=== PATIENT | male | born 1955 | race Caucasian/White ===

== ENCOUNTER 2020-01-06 02:41 | Outpatient (CLI) | payer BC, SELFPAY ==
[2020-01-06 18:37] LABS: SARS-CoV-2 RNA PCR Negative
== END 2020-01-06 02:42 | disposition home or self-care (01) ==
LOC: ANHCOVIDDT 02:42
PROVIDERS: Visit Provider Plastic Surgery
DX: Z01.812 Encounter for preprocedural laboratory examination (principal); Z20.828 Contact with and (suspected) exposure to other viral communicable diseases
CPT/HCPCS: 87635; C9803; U0003

== ENCOUNTER 2020-01-08 01:14 | Day surgery (SDC) | payer BC, SELFPAY ==
[2020-01-02 15:21] VITALS: BMI 25.1
[2020-01-08] VITALS (10 sets, daily range): BP systolic 122–143; BP diastolic 69–84; PULSE 73–81; RESP 16–18; TEMP 36.6; O2SAT 96–99
--- NOTE | 2020-01-08 07:13 | WPDHPUPDATE1 ---
History and Physical Update Update Date/Time: 01/08/20 07:13 History and Physical has been reviewed, including an updated exam of the patient. There are NO changes in the patient's condition. Risks, benefits, and alternatives have been discussed and questions answered. Patient agrees to proceed with procedure.
[2020-01-08] MEDS: LIDO 1%/EPINEPHRINE 1:100,000 20 ML VIAL INFILTRATE (10:16)
--- NOTE | 2020-01-08 11:23 | PM.OP ---
Procedure Note - Brief Procedure Note - Brief Date of procedure: 01/08/20 Pre-op diagnosis: melanoma insitu left low leg, sq cell left forearm Post-op diagnosis: same Procedure performed: 2.3 cm excision of MIS left lower leg with Intermediate repair 7.0 cm. 3.0 cm excision of SCC of left forearm with FS and intermediate repair 7.0 cm. Anesthesia: local Surgeon: Atif Bonds MD Estimated blood loss (mL): 5.0 Tourniquet time (min): 0 Drains: No Packing: No Pathology: yes Complications: No immediate complications Condition: stable Disposition: same day
--- NOTE | 2020-01-08 11:28 | P.OP_ITS ---
Procedure Note - Detailed Date of procedure: 01/08/20 Pre-op diagnosis: melanoma insitu left low leg, sq cell left forearm Post-op diagnosis: same Procedure performed: 2.3 cm excision of melanoma in situ right lower leg with intermediate repair 7 cm. 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 He was transported to the operating room and placed supine on the operating table. A time-out was held and confirmed. The left lower extremity and the left forearm were prepped and draped in usual fashion. Sites were carefully marked for peripheral measurements and axis. Both were infiltrated with 1% lidocaine with epinephrine. The lesion from the left forearm was taken 1st and sent for frozen section. The estimated margin was just over 5 mm. It was marked at the most superior aspect for the 12 o'clock position. The pathologist reported that the diagnosis was confirmed and the margins were free. This wound was closed with 2 cm of undermining in all directions. The wound margins were approximated with intradermal 3-0 Vicryl suture. Standing cones were removed both ends. The skin was closed with running intradermal 4-0 Monocryl suture. The lesion from the leg was taken with an estimated 7-8 mm margin after estimating the peripheral margin of the tumor site. A full cm was marked out and the incision was cut just inside of that line.. This tissue was not sent for frozen section. The wound required undermining and excessive 2 cm in all directions. The wound was approximated with intradermal 3-0 Vicryl suture multiple sites. Standing cones removed both ends and the skin was closed with a running 5 0 nylon suture. Padded and supported bandages were applied to both areas including Coban on the leg and Tegaderm on the forearm. The patient was discharged home with instructions in wound care and follow-up Ms. advised not to do pushups or exercise walk in excess of 1 mi per day until sutures are removed.. A prescription for tramadol 50 mg 1-2 Q 6 hours #10 Tablets was sent to his pharmacy Surgeon: Atif Bonds MD
== END 2020-01-08 11:32 | disposition home or self-care (01) ==
PROVIDERS: Visit Provider Plastic Surgery
PROC: (CPT 11603; principal; 2020-01-08 09:00)
PROC: (CPT 11603; 2020-01-08 09:00)
DX: C43.72 Malignant melanoma of left lower limb, including hip (principal); C44.629 Squamous cell carcinoma of skin of left upper limb, including shoulder; D23.72 Other benign neoplasm of skin of left lower limb, including hip
CPT/HCPCS: 11603 ×2; 12035; 88305; 88331; 88332; 88342; A9270